=== PATIENT | male | born 1990 | race Caucasian/White ===

== ENCOUNTER 2021-12-13 06:50 | Inpatient (IN) | payer MEDICAID, OTHER ==
[~2021-12-13] VITALS: Ht 170.2 cm; Wt 77.1 kg
[2021-12-13] MEDS ORDERED: MORPHINE SULFATE 4 MG/ML CPJ (NOT FOR IM USE) IV STA (07:12)
[2021-12-13] MEDS ORDERED: ONDANSETRON HCL 4MG/2ML INJ IV STA (07:12)
[2021-12-13 07:30] LABS: BASOPHILS % 0.2 % (0.0-2.0); EOSINOPHILS % 0.4 % (0.0-5.0); HEMATOCRIT. 43.5 % (42.0-52.0); HEMOGLOBIN. 15.2 g/dL (14.0-18.0); LYMPHOCYTES % 12.5 % (20.0-50.0); MEAN CORPUSCULAR HEMOGLOBIN 32.3 pg (28.0-32.0); MEAN CORPUSCULAR VOLUME 92.7 fL (80.0-94.0); MEAN PLATELET VOLUME 7.2 fl (7.4-10.4); MONOCYTES % 4.4 % (2.0-8.0); NEUTROPHILS % 82.5 % (40.0-76.0); PLATELET 321 x1000/uL (130-400); RED BLOOD CELL COUNT 4.69 mill/uL (4.7-6.1); RED CELL DISTRIBUTION WIDTH 12.9 % (11.6-14.6)
[2021-12-13 07:36] LABS: CHLORIDE 108 mEq/L (98-107)
[2021-12-13 08:10] LABS: PROTHROMBIN TIME 10.8 sec (9.6-11.0)
[2021-12-13 08:22] LABS: CLARITY URINE CLEAR (CLEAR); COLOR URINE YELLOW (YELLOW); KETONES URINE NEGATIVE (NEGATIVE); LEUKOCYTE ESTERASE URINE NEGATIVE (NEGATIVE); NITRITE URINE NEGATIVE (NEGATIVE); OCCULT BLOOD URINE TRACE (NEGATIVE); PH URINE 5.5 (4.5-8.0); PROTEIN URINE NEGATIVE (NEGATIVE); SPECIFIC GRAVITY URINE 1.015 (1.005-1.030); UROBILINOGEN URINE 0.2 E.U./dL (0.2-1.0)
[2021-12-13] MEDS ORDERED: MORPHINE SULFATE 4 MG/ML CPJ (NOT FOR IM USE) IV ONE ×2 (09:00→10:45)
[2021-12-13] MEDS ORDERED: ACETAMINOPHEN 325MG TABLET PO PRN ×2 (12:45)
[2021-12-13] MEDS ORDERED: GUAIFENESIN 200MG/10ML SUGAR FREE UDC PO PRN (12:45)
[2021-12-13] MEDS ORDERED: ONDANSETRON HCL 4MG/2ML INJ IV PRN (12:45)
[2021-12-13] MEDS ORDERED: NITROGLYCERIN 0.4MG TABLET SL SL PRN (12:45)
[2021-12-13] MEDS ORDERED: IPRATROPIUM/ALBUTEROL 0.5-3(2.5)MG/3ML NEB NEB PRN (12:45)
[2021-12-13] MEDS ORDERED: CLONIDINE 0.1MG TABLET PO PRN (12:45)
[2021-12-13] MEDS ORDERED: DOCUSATE SODIUM 100MG CAPSULE PO PRN (12:45)
[2021-12-13] MEDS ORDERED: KETOROLAC 15MG/ML VIAL IV PRN (12:45)
[2021-12-13] MEDS ORDERED: MAGNESIUM/ALUMINUM HYDROXIDE/SIMETHICONE 30ML UDC PO PRN (12:45)
[2021-12-13 13:26] LABS: ETHANOL BLOOD < 10 mg/dL; LDL CHOLESTEROL 73 mg/dL (5-100); TOTAL IRON BINDING CAPACITY 430 ug/dL (250-450)
[2021-12-13 14:00] VITALS: BP 122/65
[2021-12-13 14:22] LABS: HDL CHOLESTEROL 58 mg/dL (40-59)
[2021-12-13] MEDS: PANTOPRAZOLE SODIUM 40 MG/VIAL IV SCH (14:31)
[2021-12-13] MEDS: SODIUM CHLORIDE 0.9% 1,000 ML IV SCH (14:32)
[2021-12-13 14:40] LABS: FOLIC ACID (FOLATE) SERUM 9.4 ng/mL (>5.38)
[2021-12-13 16:00] VITALS: BP 122/65
[2021-12-13 20:00] VITALS: BP 114/77
[2021-12-13] MEDS ORDERED: ZOLPIDEM TARTRATE 5MG TABLET PO PRN (21:00)
[2021-12-14] MEDS: SODIUM CHLORIDE 0.9% 1,000 ML IV SCH (01:51)
[2021-12-14 04:29] VITALS: BP 99/60
[2021-12-14 07:53] LABS: BASOPHILS % 0.2 % (0.0-2.0); EOSINOPHILS % 2.7 % (0.0-5.0); HEMATOCRIT. 40.3 % (42.0-52.0); HEMOGLOBIN. 13.8 g/dL (14.0-18.0); LYMPHOCYTES % 34.6 % (20.0-50.0); MEAN CORPUSCULAR HEMOGLOBIN 31.9 pg (28.0-32.0); MEAN CORPUSCULAR VOLUME 93.1 fL (80.0-94.0); MEAN PLATELET VOLUME 7.3 fl (7.4-10.4); MONOCYTES % 8.3 % (2.0-8.0); NEUTROPHILS % 54.2 % (40.0-76.0); PLATELET 266 x1000/uL (130-400); RED BLOOD CELL COUNT 4.33 mill/uL (4.7-6.1); RED CELL DISTRIBUTION WIDTH 13.1 % (11.6-14.6)
[2021-12-14 08:00] VITALS: BP 102/67
[2021-12-14 08:08] LABS: CHLORIDE 109 mEq/L (98-107)
[2021-12-14 08:18] LABS: PHOSPHORUS 3.5 mg/dL (2.5-4.9)
[2021-12-14] MEDS: PANTOPRAZOLE SODIUM 40 MG/VIAL IV SCH (10:50)
[2021-12-14 12:00] VITALS: BP 109/62
== END 2021-12-14 14:00 | disposition home or self-care (01) | DRG 249 ==
LOC: ER 06:50 → 6EST 10:51 → EDBEDREQ 11:07 → EDBEDREQTM 11:07
PROVIDERS: ADMIT Internal Medicine; ATTEND Internal Medicine
DX: A08.4 Viral intestinal infection, unspecified (principal); E87.1 Hypo-osmolality and hyponatremia; K75.3 Granulomatous hepatitis, not elsewhere classified; Z90.49 Acquired absence of other specified parts of digestive tract
CPT/HCPCS: 36415; 74176; 80053; 80061; 80320; 81003; 82607; 82746; 83036; 83540; 83550; 83735; 84100; 84145; 84443; 85025; 99285; C9113; J1885; J2270; J2405; G0480

== ENCOUNTER 2022-02-03 14:04 | Emergency (ER) | payer MEDICAID ==
[~2022-02-03] VITALS: Ht 167.6 cm; Wt 74.0 kg
[2022-02-03] MEDS ORDERED: KETOROLAC 60MG/2ML VIAL IM ONE (15:15)
[2022-02-03] MEDS ORDERED: METHOCARBAMOL 500MG TABLET PO ONE (15:15)
[2022-02-03] MEDS ORDERED: METH-773 MT (17:50)
[2022-02-03] MEDS ORDERED: LIDO1ADH23 TP (17:50)
[2022-02-03] MEDS ORDERED: NAPR-681 MT (17:50)
[2022-02-03 18:01] VITALS: BP 133/70
== END 2022-02-03 18:04 | disposition home or self-care (01) ==
LOC: ER 14:31
DX: M54.2 Cervicalgia (principal); S10.83XA Contusion of other specified part of neck, initial encounter; W20.8XXA Other cause of strike by thrown, projected or falling object, initial encounter; Y93.89 Activity, other specified; Y92.89 Other specified places as the place of occurrence of the external cause; Z90.49 Acquired absence of other specified parts of digestive tract
CPT/HCPCS: 72040; 96372; 99283; J1885